=== PATIENT | male | born 1955 | race Two or more races ===

== ENCOUNTER 2017-07-25 23:45 | Inpatient (IN) | payer OTHER ==
[~2017-07-25] VITALS: Ht 172.7 cm; Wt 91.0 kg
[2017-07-26 00:44] LABS: Eosinophils # (auto) 0 uL; Hemoglobin 13.5 g/dL (13.5-17.5)
[2017-07-26 00:46] LABS: Basophils # (auto) 0.2 uL; Basophils % (auto) 0.5 % (0.0-2.0); Hematocrit 40.8 % (41.0-53.0); Lymphocytes # (auto) 1.7 uL; Lymphocytes % (auto) 4.6 % (10.0-50.0); Mean Corpuscular Hemoglobin 29.4 pg (28.0-32.0); Mean Corpuscular Hgb Conc. 33.2 g/dL (32.0-36.0); Mean Corpuscular Volume 88.7 fL (80.0-100.0); Monocytes # (auto) 2.4 uL; Monocytes % (auto) 6.6 % (0.0-12.0); Neutrophils # (auto) 31.4 uL; Neutrophils % (auto) 88.3 % (37.0-80.0); Platelet Count (auto) 599 10^3/uL (140-450); Red Cell Distribution Width 13.2 % (11.8-14.3)
[2017-07-26 00:49] LABS: White Blood Cell 35.6 10^3/uL (4.4-10.8)
[2017-07-26 00:51] LABS: INR 1.04 (0.9-1.15); Partial Thromboplastin Time 34.6 sec (22.64-33.71); Prothrombin Time 11.3 sec (9.37-12.3)
[2017-07-26 01:11] LABS: Alanine Aminotransferase 13 U/L (16-61); Alkaline Phosphatase 130 U/L (45-117); Anion Gap 21 (5-15); Aspartate Aminotransferase 9 U/L (15-37); BUN/Creatinine Ratio 24.5; Blood Urea Nitrogen 38 mg/dL (7-18); Calcium 9.7 mg/dL (8.5-10.1); Carbon Dioxide 14 mmol/L (21-32); Chloride 88 mmol/L (98-107); GFR African American 59 mL/min; GFR Non-African American 49 mL/min; Sodium 123 mmol/L (136-145)
[2017-07-26 01:12] LABS: Albumin 2.8 g/dL (3.4-5.0); Bilirubin, Total 0.6 mg/dL (0.2-1.0); Total Protein 9.5 g/dL (6.4-8.2)
[2017-07-26 01:28] LABS: Glucose 632 mg/dL (74-106)
[2017-07-26] MEDS ORDERED: SODIUM CHLORIDE 0.9% 1,000 ML IV ONE (01:45)
[2017-07-26] MEDS ORDERED: SODIUM CHLORIDE 0.9% 2,000 ML IV ONE (01:45)
[2017-07-26] MEDS ORDERED: InsuLIN REG 1unit/0.01ml Soln (100units/ml) IV ONE (01:45)
[2017-07-26] MEDS ORDERED: InsuLIN R (HUMAN) 100 UNITS in SODIUM CHL 0.9% 99 ML IV SCH (02:26)
[2017-07-26] MEDS ORDERED: DEXTROSE (50%) 50ML SYRG IV PRN ×2 (02:30→15:45)
[2017-07-26] MEDS ORDERED: MORPHINE SULFATE 4 MG/ML SYR/VIAL IV ONE (03:00)
[2017-07-26] MEDS ORDERED: ONDANSETRON HCL 4 MG/2 ML VIAL IV ONE (03:00)
[2017-07-26] MEDS: SODIUM CHLORIDE 0.9% 1,000 ML IV SCH ×5 (03:15→15:09)
[2017-07-26] MEDS: ACCU-CHEK COMFORT CURVE STRIP VI SCH ×12 (03:16→20:00)
[2017-07-26 04:02] LABS: BUN/Creatinine Ratio 25.9; Potassium 4.5 mmol/L (3.5-5.1)
[2017-07-26 04:05] LABS: Magnesium 2.6 mg/dL (1.6-2.6)
[2017-07-26] MEDS ORDERED: SODIUM CHLORIDE 0.9% 1,000 ML IV SCH (06:26)
[2017-07-26 07:51] LABS: Urine Bacteria NONE SEEN /hpf (None Seen); Urine Blood TRACE /uL (Negative); Urine Specific Gravity 1.027 (1.001-1.035)
[2017-07-26 07:53] LABS: Urine WBC None Seen /hpf (0 - 3)
[2017-07-26] MEDS ORDERED: PIPERACILLIN-TAZOB 3.375GM 50 ML IV ONE (08:30)
[2017-07-26 09:35] LABS: Albumin 2.2 g/dL (3.4-5.0); BUN/Creatinine Ratio 24.3; Bilirubin, Total 0.3 mg/dL (0.2-1.0); Calcium 8.8 mg/dL (8.5-10.1); Potassium 4.4 mmol/L (3.5-5.1); Total Protein 7.7 g/dL (6.4-8.2)
[2017-07-26] MEDS: BENAZEPRIL HCL 10 MG TAB PO SCH ×2 (10:00→10:28)
[2017-07-26] MEDS: ENOXAPARIN SOD 30 MG/0.3 ML SYRINGE SC SCH (10:28)
[2017-07-26] MEDS: MORPHINE SULFATE 4 MG/ML SYR/VIAL IV PRN ×3 (10:48→21:48)
[2017-07-26] MEDS: ONDANSETRON HCL 4 MG/2 ML VIAL IV PRN ×3 (10:48→21:59)
[2017-07-26 11:35] LABS: Mean Corpuscular Hemoglobin 29.2 pg (28.0-32.0)
[2017-07-26 11:36] LABS: Hematocrit 35.4 % (41.0-53.0); Hemoglobin 11.9 g/dL (13.5-17.5); Mean Corpuscular Hgb Conc. 33.5 g/dL (32.0-36.0); Platelet Count (auto) 475 10^3/uL (140-450); Red Blood Cells 4.07 10^6/uL (4.5-5.90); White Blood Cell 29.1 10^3/uL (4.4-10.8)
[2017-07-26 12:04] LABS: Band Neutrophils % (manual) 0; Basophils % (manual) 0 (0.0-2.0); Eosinophils % (manual) 0 (0-7)
[2017-07-26 12:05] LABS: Blast Cells 0; Metamyelocytes % 0; Myelocytes % 0; Promyelocytes % 0; Reactive Lymphocytes 0
[2017-07-26] MEDS: PIPERACILLIN-TAZOB 3.375GM 50 ML IV SCH ×2 (12:08→18:17)
[2017-07-26] MEDS: METOPROLOL TARTRATE 25 MG TAB PO SCH ×2 (13:45→21:35)
[2017-07-26 15:07] LABS: Lymphocytes % (manual) 9 (10.0-50.0); Monocytes % (manual) 12 (0-12)
[2017-07-26] MEDS ORDERED: INSULIN LANTUS (GLARGINE) 1 /0.01ml (100units/ml) SC ONE (15:45)
[2017-07-26] MEDS: guaiFENesin-DM 100/10mg/5ml SYR PO PRN ×2 (16:18→21:48)
[2017-07-26] MEDS: InsuLIN REG 1unit/0.01ml Soln (100units/ml) SC SCH ×2 (17:00→21:36)
[2017-07-26 17:09] VITALS: BP 155/75
[2017-07-26] MEDS: ATORVASTATIN 20 MG TAB PO SCH (21:26)
[2017-07-26] MEDS: HYDROcodone-ACET 5/325MG TAB PO PRN (21:27)
[2017-07-26 21:54] VITALS: BP 160/73
[2017-07-26] MEDS: IPRATROPIUM BROM 0.5 MG/2.5ML INH SOL NEB PRN (22:45)
[2017-07-26] MEDS: ALBUTEROL SULF 2.5 MG/0.5ML(0.5%) NEB SOLN NEB PRN (22:45)
[2017-07-27] VITALS (7 sets, daily range): BP systolic 121–157; BP diastolic 59–86
[2017-07-27] MEDS: PIPERACILLIN-TAZOB 3.375GM 50 ML IV SCH ×5 (00:57→23:40)
[2017-07-27] MEDS: SODIUM CHLORIDE 0.9% 1,000 ML IV SCH ×4 (00:57→21:48)
[2017-07-27] MEDS: InsuLIN REG 1unit/0.01ml Soln (100units/ml) SC SCH ×7 (00:58→23:57)
[2017-07-27] MEDS: ACCU-CHEK COMFORT CURVE STRIP VI SCH ×7 (04:00→23:57)
[2017-07-27] MEDS: guaiFENesin-DM 100/10mg/5ml SYR PO PRN ×2 (04:35→11:55)
[2017-07-27] MEDS: MORPHINE SULFATE 4 MG/ML SYR/VIAL IV PRN (04:49)
[2017-07-27] MEDS: HYDROcodone-ACET 5/325MG TAB PO PRN ×2 (05:00→11:56)
[2017-07-27 06:22] LABS: Basophils # (auto) 0 uL; Basophils % (auto) 0.1 % (0.0-2.0); Eosinophils # (auto) 0 uL; Eosinophils % (auto) 0.1 % (0.0-7.0); Hematocrit 33.2 % (41.0-53.0); Hemoglobin 11.2 g/dL (13.5-17.5); Lymphocytes # (auto) 1.1 uL; Lymphocytes % (auto) 4.6 % (10.0-50.0); Mean Corpuscular Hemoglobin 29.5 pg (28.0-32.0); Mean Corpuscular Hgb Conc. 33.7 g/dL (32.0-36.0); Mean Corpuscular Volume 87.6 fL (80.0-100.0); Monocytes # (auto) 1.7 uL; Monocytes % (auto) 7.4 % (0.0-12.0); Neutrophils # (auto) 20.8 uL; Neutrophils % (auto) 87.8 % (37.0-80.0); Platelet Count (auto) 404 10^3/uL (140-450); Red Blood Cells 3.79 10^6/uL (4.5-5.90); Red Cell Distribution Width 13.1 % (11.8-14.3); White Blood Cell 23.6 10^3/uL (4.4-10.8)
[2017-07-27 06:44] LABS: BUN/Creatinine Ratio 17.2; Calcium 8.7 mg/dL (8.5-10.1); Magnesium 2.2 mg/dL (1.6-2.6); Potassium 3.6 mmol/L (3.5-5.1)
[2017-07-27] MEDS: ENOXAPARIN SOD 30 MG/0.3 ML SYRINGE SC SCH (10:20)
[2017-07-27] MEDS: BENAZEPRIL HCL 10 MG TAB PO SCH (10:20)
[2017-07-27] MEDS: METOPROLOL TARTRATE 25 MG TAB PO SCH ×2 (10:20→21:47)
[2017-07-27] MEDS ORDERED: INSULIN LANTUS (GLARGINE) 1 /0.01ml (100units/ml) SC ONE (11:15)
[2017-07-27] MEDS ORDERED: METOPROLOL TARTRATE 25 MG TAB PO ONE (11:15)
[2017-07-27] MEDS ORDERED: SODIUM CHLORIDE 0.9% 1,000 ML IV ONE (11:15)
[2017-07-27] MEDS: ACETAMINOPHEN 500 MG TAB PO PRN (20:17)
[2017-07-27] MEDS: ATORVASTATIN 20 MG TAB PO SCH (21:47)
[2017-07-28] MEDS: InsuLIN REG 1unit/0.01ml Soln (100units/ml) SC SCH ×4 (03:59→16:00)
[2017-07-28] MEDS: ACCU-CHEK COMFORT CURVE STRIP VI SCH ×4 (03:59→16:00)
[2017-07-28] MEDS: MORPHINE SULFATE 4 MG/ML SYR/VIAL IV PRN (05:00)
[2017-07-28 05:01] VITALS: BP 163/94
[2017-07-28] MEDS: PIPERACILLIN-TAZOB 3.375GM 50 ML IV SCH ×3 (05:56→18:00)
[2017-07-28 08:00] VITALS: BP 169/88
[2017-07-28 08:45] LABS: Basophils # (auto) 0 uL; Basophils % (auto) 0.1 % (0.0-2.0); Eosinophils # (auto) 0.1 uL; Eosinophils % (auto) 0.5 % (0.0-7.0); Hematocrit 32.8 % (41.0-53.0); Hemoglobin 10.8 g/dL (13.5-17.5); Lymphocytes # (auto) 1.8 uL; Lymphocytes % (auto) 8.8 % (10.0-50.0); Mean Corpuscular Hemoglobin 28.7 pg (28.0-32.0); Mean Corpuscular Hgb Conc. 32.8 g/dL (32.0-36.0); Mean Corpuscular Volume 87.5 fL (80.0-100.0); Monocytes # (auto) 1.5 uL; Monocytes % (auto) 7.2 % (0.0-12.0); Neutrophils % (auto) 83.4 % (37.0-80.0); Nucleated Red Blood Cells % 0.1 %; Platelet Count (auto) 419 10^3/uL (140-450); Red Blood Cells 3.75 10^6/uL (4.5-5.90); Red Cell Distribution Width 13.2 % (11.8-14.3); White Blood Cell 20.4 10^3/uL (4.4-10.8)
[2017-07-28 09:00] VITALS: BP 169/88
[2017-07-28 09:04] LABS: BUN/Creatinine Ratio 15.7; Calcium 8.7 mg/dL (8.5-10.1); Magnesium 2.1 mg/dL (1.6-2.6); Potassium 3.5 mmol/L (3.5-5.1)
[2017-07-28] MEDS ORDERED: INSULIN LANTUS (GLARGINE) 1 /0.01ml (100units/ml) SC SCH ×2 (10:00)
[2017-07-28] MEDS: SODIUM CHLORIDE 0.9% 1,000 ML IV SCH ×2 (10:30→17:30)
[2017-07-28] MEDS: BENAZEPRIL HCL 10 MG TAB PO SCH (10:34)
[2017-07-28] MEDS: METOPROLOL TARTRATE 25 MG TAB PO SCH (10:34)
[2017-07-28] MEDS: ENOXAPARIN SOD 30 MG/0.3 ML SYRINGE SC SCH (10:34)
[2017-07-28] MEDS: HYDROcodone-ACET 5/325MG TAB PO PRN (10:44)
[2017-07-28] MEDS: ACETAMINOPHEN 500 MG TAB PO PRN (12:01)
[2017-07-28] MEDS: guaiFENesin-DM 100/10mg/5ml SYR PO PRN (12:19)
[2017-07-28] MEDS: IPRATROPIUM BROM 0.5 MG/2.5ML INH SOL NEB PRN ×2 (12:25→19:34)
[2017-07-28] MEDS: ALBUTEROL SULF 2.5 MG/0.5ML(0.5%) NEB SOLN NEB PRN ×2 (12:25→19:34)
[2017-07-28 13:00] VITALS: BP 142/74
[2017-07-28] MEDS ORDERED: INSLANTI SC (13:05)
[2017-07-28] MEDS ORDERED: INSREGI SC (13:05)
[2017-07-28] MEDS ORDERED: ALBUAER3 IN (13:05)
[2017-07-28] MEDS ORDERED: ATOR20TA50 PO (13:05)
[2017-07-28] MEDS ORDERED: LEVO500T21 PO (13:05)
[2017-07-28] MEDS ORDERED: BEN10T PO (13:05)
[2017-07-28] MEDS ORDERED: MET25T PO (13:05)
[2017-07-28] MEDS ORDERED: IPRIH IN (13:05)
[2017-07-28] MEDS ORDERED: DEXT1SYP6 PO (13:05)
[2017-07-28] MEDS ORDERED: INSU-829 XX (13:08)
[2017-07-28 16:33] VITALS: BP 146/80
[2017-07-28 17:48] VITALS: BP 142/74
== END 2017-07-28 20:10 | disposition home health service (06) | DRG 871 ==
LOC: ER 23:51 → TELE 23:52 → TELE-EAST 07-26 19:54
PROVIDERS: ADMIT Nurse Practitioner Family; ATTEND Internal Medicine
DX: A41.9 Sepsis, unspecified organism (principal); E11.10 Type 2 diabetes mellitus with ketoacidosis without coma; N17.9 Acute kidney failure, unspecified; J18.9 Pneumonia, unspecified organism; E86.0 Dehydration; E78.5 Hyperlipidemia, unspecified; I10 Essential (primary) hypertension; Z79.4 Long term (current) use of insulin
CPT/HCPCS: 36415; 36600; 71046; 71250; 80048; 80053; 81001; 82010; 82805; 82962; 83036; 83605; 83735; 83930; 84100; 84484; 85007; 85025; 85027; 85610; 85730; 87040; 87804; 94640; 96361; 96374; J1815; J2405; J2543; J7060

== ENCOUNTER 2024-03-21 12:32 | Emergency (ER) | payer OTHER ==
[~2024-03-21] VITALS: Ht 172.7 cm; Wt 92.2 kg
[~2024-03-21 12:32] MED LIST: ALBUAER3 IN; ATOR20TA50 PO; BENA10TA16 PO; DEXT1SYP6 PO; INSLANTI SC; INSREGI SC; INSU-829 XX; IPRIH IN; LEVO500T31 PO; MET25T PO
[2024-03-21 12:59] LABS: Urine Bacteria None Seen /hpf (None Seen); Urine WBC None Seen /hpf (0 - 3)
--- NOTE | 2024-03-21 13:02 | ED.PDOC ---
General HPI Comments 69 y.o male presents to the ED for a chief complaint of left sided flank pain. Patient reports ongoing pain for the past 4 years, worsened last night with upper torso rotation/ movement. Patient has been seen in the past for this pain, had an MRI and x rays done but states nothing was found. Patient does mention lifting heavy objects " a while back" associated with continuos twisting and stretching. No urinary symptoms, diarrhea, nausea, vomiting, fever, chills. Vital signs BP: 182/92 HR: 96 Temp: 98.6 F SPO2: 96% RA RR: 18 Patient denies any allergies Past medical history: DM and HTN Past surgical history: right forearm and left leg/knee and hip HPI: Poor Historian. Past Medcial History: Past Surgical History: REVIEW OF SYSTEMS: CONSTITUTIONAL: Denies acute: fever, diaphoresis, chills, generalized weakness. HEAD: Denies acute: headache, photophobia Eyes: Denies acute: Double vision, vision loss, eye pain, eye discharge. EARS: Denies acute: tinnitus, hearing loss, ear discharge, ear pain, THROAT: Denies acute: sore throat, swelling, difficulty swallowing , pain with swallowing, change in voice. NECK: Denies acute: neck pain, neck swelling, stiff neck. HEART: Denies acute : chest pain, palpitations, LUNGS: Denies acute: SOB, wheezing, cough, hemoptysis ABDOMEN: Denies acute: abdominal pain, Nausea, Vomiting, diarrhea, melena , hematemesis, hematochezia SKIN: Denies acute: rash, redness, lesions, itchiness. EXTREMITIES: Denies acute: calf pain, numbness, tingling, weakness, denies pain in extremity. Neuro: Denies acute: focal neurological deficit, motor or sensory focal neurological deficit, tremors, seizure like activity, confusion, dizziness, change in mental status, loss of bowel or bladder function, cauda equina like symptoms. : Denies acute: dysuria, hematuria, increase in urinary frequency. PSYCH: Denies acute: hallucination, suicidal ideation, homicidal ideation. PHYSICAL EXAM: General: no acute distress, awake and alert. Head: normocephalic, atraumatic. Neck: supple, trachea is midline, no swelling. Throat: Normal phonation. Eyes:, no erythema, no purulent discharge, no proptosis, no icterus. Heart: regular rate, regular rhythm, no significant murmur appreciated. Lungs: no apparent respiratory distress, Able to speak in full sentences. No wheezing, no rhonchi, no crackles. No stridors Clear to auscultation bilaterally. Abdomen: non tender to palpation, non distended, soft, no guarding, no rebound, + bowel sounds. Neuro: Awake, Alert, oriented to name, self, situation, follows commands GCS=15. Speech is normal. Skin: no petechia, no purpura, no cyanosis, non-pale, not jaundice. Lower extremities: --no - Pitting edema no deformity, no focal swelling, no calf TTP. Makes eye contact. moves all four extremities. Face: no apparent facial droop. Left CVA tenderness to percussion. Ambulating in the ED independently. Chief Complaint: Flank Pain Time Seen by MD: 12:40 Reviewed notes: Nurses Notes, Medications, Allergies Allergies: Coded Allergies: NO KNOWN ALLERGIES (Unverified , 07/26/17) Home Meds Active Scripts Insulin Syringe/Needle U-100 (B-D Insulin Syringe Ultra 30G X 1/2" 0.3 ml) 1 Mis Mis, MIS XX, #120 Prov:SATHISH HUI MD 07/28/17 Dextromethorphan-Guaifenesin (Guaifenesin/Dextromethorp 10-100 mg/5Ml) 1 Syp Syp, 10 ML PO Q4HPRN PRN, #1 BOTTLE Prov:SATHISH HUI MD 07/28/17 Levofloxacin (Levaquin) 500 Mg Tab, 500 MG PO DAILY, #7 TAB Prov:SATHISH HUI MD 07/28/17 Albuterol Sulfate (VENTOLIN MDI) 90 Mcg Ih, 2 PUFF IN Q6HPRN PRN, #1 INHALER Prov:SATHISH HUI MD 07/28/17 Ipratropium [place] Hfa (Atrovent Hfa) 17 Mcg Aer, 17 MCG IN Q6HPRN PRN, #1 INHALER Prov:SATHISH HUI MD 07/28/17 Metoprolol Tartrate (Lopressor) 25 Mg Tb, 25 MG PO BID, #60 TAB Prov:SATHISH HUI MD 07/28/17 Insulin Regular (Human) (Novolin R) 100 Unit/Ml Inj, 0 UNITS SC ACHS, #120 DOSE ADMINISTER DIRECTED PER SLIDING SCALE UP TO 40 UNITS PER DAY. Prov:SATHISH HUI MD 07/28/17 Insulin Glargine (Lantus) 100 Unit/Ml Inj, 55 UNITS SC DAILY@1000, #30 DOSE Prov:SATHISH HUI MD 07/28/17 Benazepril Hcl (LOTENSIN TABLET) 10 Mg Tb, 20 MG PO DAILY, #30 TAB Prov:SATHISH HUI MD 07/28/17 Atorvastatin Calcium (ATORVASTATIN CALCIUM) 20 Mg Tab, 10 MG PO HS, #30 TAB Prov:SATHISH HUI MD 07/28/17 Information Source: Patient Mode of Arrival: Ambulatory Past Medical History PAST MEDICAL HISTORY: DM, HTN Surgical History: Cholecystectomy, Tonsillectomy Surgical History (Other): right forearm and left leg/knee and hip Family History Family History: Unknown Social History Smoker: Non-Smoker Alcohol: Denies ETOH Use Drugs: Denies Drug Use Lives In: Home Was a procedure done? Was a procedure done?: No Differential Diagnosis Kidney stone (Female): N/A Kidney stone (Male): Pancreatitis, Pyelonephritis, Strain, Other (Flank Pain;DDX include Nephrolethiasis, obstructive uropathy, kidney cancer, renal infarct, intraabdominal neoplasm, lower lobe pneumonia, retroperitoneal hemorrhage, pancreatitis, aneurysm, dissection, musculoskeletal, rib contusion/trauma, hematoma, PYLONEPHRITIS, muscle strain, spinal disease.) Urinary Problem (Male): Other (As far as low back pain,) Urinary Problem (Female): Other (DDX included but not limited to Cauda Equina syndrome, lumbar radiculopathy, arthritis, disk herniation, sciatica, muscle strain, epidural abscess, transverse myelitis. Cord compression, spinal foraminal stenosis, spinal fractures, spondylosis, central canal stenosis, trauma, muscle sprain/strain, aneurysm/dissection, kidney stones, shingles, arthritis, [place], neoplasm.) X-Ray, Labs, Meds, VS Vital Signs Date Time Temp Pulse Resp B/P (MAP) Pulse Ox O2 Delivery O2 Flow Rate FiO2 03/21/24 18:07 85 18 155/94 (114) 95 03/21/24 14:32 83 20 98 Room Air* 0 21 03/21/24 14:32 83 18 135/70 (91) 99 03/21/24 12:54 98.6 96 18 186/92 (123) 96 Lab Test 03/21/24 18:04 03/21/24 14:31 03/21/24 13:00 03/21/24 12:57 Range/Units POC Glucose 151 H 560 *H 70-106 mg/dl White Blood Count 13.2 H 4.4-10.8 10^3/uL Red Blood Count 5.41 4.5-5.90 10^6/uL Hemoglobin 16.4 13.5-17.5 g/dL Hematocrit 47.3 41.0-53.0 % Mean Corpuscular Volume 87.5 80.0-100.0 fL Mean Corpuscular Hemoglobin 30.4 28.0-32.0 pg Mean Corpuscular Hemoglobin Concent 34.7 32.0-36.0 g/dL Red Cell Distribution Width 13.1 11.8-14.3 % Platelet Count 265 140-450 10^3/uL Mean Platelet Volume 8.9 6.9-10.8 fL Neutrophils (%) (Auto) 77.3 37.0-80.0 % Lymphocytes (%) (Auto) 16.2 10.0-50.0 % Monocytes (%) (Auto) 4.6 0.0-12.0 % Eosinophils (%) (Auto) 1.6 0.0-7.0 % Basophils (%) (Auto) 0.3 0.0-2.0 % Neutrophils # (Auto) 10.2 H 1.6-8.6 10 ^3/uL Lymphocytes # (Auto) 2.1 0.4-5.4 10 ^3/uL Monocytes # (Auto) 0.6 0-1.3 10 ^3/uL Eosinophils # (Auto) 0.2 0-0.8 10 ^3/uL Basophils # (Auto) 0 0-0.2 10 ^3/uL Nucleated Red Blood Cells 0.1 % Sodium Level 132 L 136-145 mmol/L Potassium Level 5.3 H 3.5-5.1 mmol/L Chloride Level 101 98-107 mmol/L Carbon Dioxide Level 27 20-31 mmol/L Anion Gap 4 L 5-15 Blood Urea Nitrogen 30 H 9-23 mg/dL Creatinine 1.51 H 0.700-1.30 mg/dL Glomerular Filtration Rate Calc 50 >90 mL/min BUN/Creatinine Ratio 19.9 10.0-20.0 Serum Glucose 528 *H 74-106 mg/dL Lactic Acid Level 1.6 0.4-2.0 mmol/L Calcium Level 9.9 8.7-10.4 mg/dL Total Bilirubin 0.3 0.2-1.0 mg/dL Aspartate Amino Transferase (AST) 15 13-40 U/L Alanine Aminotransferase (ALT) 17 7-40 U/L Alkaline Phosphatase 159 H 46-116 U/L Troponin I High Sensitivity < 3 L </=54 ng/L Total Protein 7.8 5.7-8.2 g/dL Albumin 4.8 3.2-4.8 g/dL Lipase 82 H 12-53 U/L Urine Color Light-yellow Yellow Urine Clarity Clear Clear Urine pH 5.0 5.0-9.0 Urine Specific [place] 1.031 1.001-1.035 Urine Protein Negative Negative Urine Ketones Negative Negative Urine Blood Negative Negative /uL Urine Nitrite Negative Negative Urine Bilirubin Negative Negative Urine Urobilinogen Normal Negative mg/dL Urine Leukocyte Esterase Negative Negative /uL Urine RBC 1 0 - 3 /hpf Urine WBC None seen 0 - 3 /hpf Urine Squamous Epithelial Cells None seen <5 /hpf Urine Bacteria None seen None Seen /hpf Urine Glucose 4+ H Normal mg/dL Current Medications Medications (Trade) Dose Ordered Sig/[place] Route Start Time Stop Time Status Last Admin Insulin Human Regular (InsuLIN R) 5 units ONCE ONCE IV 03/21/24 14:15 03/21/24 14:16 DC 03/21/24 14:39 Sodium Chloride 1,000 ml @ 1,000 mls/hr Q1H ONCE IV 03/21/24 14:15 03/21/24 15:14 DC 03/21/24 14:[address] [address] Ph: [phone] DIAGNOSTIC IMAGING Diagnostic Imaging Report : [id number] Signed PATIENT: ESTRELLITA AUGUSTINACCT: [id number] UNIT: [id number] : 1955 LOC: ER ROOM / BED: / AGE / SEX: 69 / M ADM STATUS: REG ER SERVICE 1247 ORDERING PHYSICIAN: MARGARITA WILSON DO PROCEDURE(s): ABPLIV - CT AB PEL WITH IV CON ONLY REASON: L flank pain ORDER NUMBER(s): [id number], ACCESSION NUMBER(s): [id number] Exam: CT CT AB PEL WITH IV CON ONLY History: L flank pain COMPARISON: None Technique: Multidetector spiral CT of the abdomen and pelvis was performed from lung bases to pubic symphysis. Intravenous contrast was administered during this examination. Portal venous imaging was obtained. Axial, coronal and sagittal multiplanar reformats were performed by the technologist on a separate workstation. Radiation Dose : Abdomen/Pelvis: CTDIvol 14 mGy, DLP 874.05 mGy*cm. CONTRAST: Type of contrast: Omni 300 Contrast injected: 100 mL Findings: Lung Bases: No acute or significant lung base finding. Normal heart size. No pleural or pericardial effusion. Liver: The liver is normal in size. No focal lesions. Normal hepatic vascular enhancement. Gallbladder and biliary Tree: Gallbladder is surgically absent. Spleen: Unremarkable Pancreas: The pancreas is normal in appearance without focal lesions or abnormal enhancement. Adrenal Glands: Unremarkable Kidneys: There is a high density right renal lesion measuring up to 19 mm. There are left renal cysts. No hydronephrosis. Bladder: Unremarkable Bowel: The stomach is grossly normal in appearance. Small bowel and colon are normal in caliber and distribution. The appendix is not visualized; however, no secondary findings of acute appendicitis identified. Ascites: Absent Lymphadenopathy: No mesenteric, retroperitoneal or periportal lymphadenopathy. Abdominal wall and Mesentery: Unremarkable. Vasculature: The visualized abdominal aorta is normal in size and caliber. Abdominal and pelvic vessels demonstrate normal enhancement. Pelvic Organs: Unremarkable Musculoskeletal: No aggressive focal bony lesions, acute fractures or dislocation. IMPRESSION: 1. Limited by motion. No acute abdominal or pelvic finding. High density right renal lesion could represent a hyperdense cyst or enhancing mass. This could be further evaluated with multiphase contrast-enhanced CT or MRI of the abdomen. Radiation optimization: All CT scans at this facility use at least one of these dose optimization techniques: Automated exposure control mA and/or kV adjustment per patient size (includes targeted exams where dose is matched to clinical indication) or iterative reconstruction. HS:Y ATED BY: TED WATSON MD DICTATED DATE/TIME: 03/21/241708 SIGNED BY: TED WATSON MD SIGNED DATE/TIME: 03/21/241708 CC: Time of 1ST Reevaluation: 12:57 Reevaluation 1ST: Unchanged Patient Education/Counseling: Diagnosis, Treatment Family Education/Counseling: No Family Present Comments Patient presented with the above HPI.---low back pain/flank pain---workup was initiated. patient was found with the above mentioned diagnosis. Patient was given: [place], insulin, fluids Patient ED course and VS have been stabilized. Patient has been reassessed in the ED and remained in a stable condition. Pertinent incidental findings were discussed with the patient and/or family. Patient/family voices understanding and is agreeable with plan. Patient has been observed in the ED adequate length of time to insure improvement/stability. patient was discharged home in a stable condition. All the reports of any imaging studies that were ordered by myself were reviewed by myself. Departure 1 Departure Time of Disposition: 19:35 Impression: Primary Impression: Lumbosacral pain Additional Impressions: Flank pain Abnormal finding on CT scan Disposition: HOME / SELF CARE / HOMELESS Condition: Stable Additional Instructions: Additional discharge instructions: You MUST follow-up with your primary care/family doctor in 1 to 2 days. If you are unable to see your primary care/family doctor, please return to our emergency room for re-assessment and re-evaluation in 1 to 2 days. Return to the emergency room here in our facility or to the nearest ER [facility] if your symptoms change or worsen. CONSULTATIONS: you MUST Follow-up for consultation as soon as possible with: -urology in one two days. Please call for appointment You MUST call the consultants office yourself to make an appointment. You may need to arrange that through your insurance and/or your primary/family doctor. If you are unable to see the web development consultant in 1 to 2 days, you must return to our emergency room (or any other ER of your choice) for re-assessment and re- evaluation. Adequate fluid hydration. Use [id number] Tylenol for pain control as needed. Your sugar was elevated today. Please monitor your blood sugar at home at least 5 times a day. Below is a copy of your radiological report for follow up: You must follow up to rule out any cancer or any other causes of your pain. [place] [address] Ph: [phone] DIAGNOSTIC IMAGING Diagnostic Imaging Report : [id number] Signed PATIENT: ESTRELLITA AUGUSTIN ACCT: [id number] UNIT: [id number] : 1955 LOC: ER ROOM / BED: / AGE / SEX: 69 / M ADM STATUS: REG ER SERVICE 1247 ORDERING PHYSICIAN: MARGARITA WILSON DO PROCEDURE(s): ABPLIV - CT AB PEL WITH IV CON ONLY REASON: L flank pain ORDER NUMBER(s): [id number], ACCESSION NUMBER(s): [id number] Exam: CT CT AB PEL WITH IV CON ONLY History: L flank pain COMPARISON: None Technique: Multidetector spiral CT of the abdomen and pelvis was performed from lung bases to pubic symphysis. Intravenous contrast was administered during this examination. Portal venous imaging was obtained. Axial, coronal and sagittal multiplanar reformats were performed by the technologist on a separate workstation. Radiation Dose : Abdomen/Pelvis: CTDIvol 14 mGy, DLP 874.05 mGy*cm. CONTRAST: Type of contrast: Omni 300 Contrast injected: 100 mL Findings: Lung Bases: No acute or significant lung base finding. Normal heart size. No pleural or pericardial effusion. Liver: The liver is normal in size. No focal lesions. Normal hepatic vascular enhancement. Gallbladder and biliary Tree: Gallbladder is surgically absent. Spleen: Unremarkable Pancreas: The pancreas is normal in appearance without focal lesions or abnormal enhancement. Adrenal Glands: Unremarkable Kidneys: There is a high density right renal lesion measuring up to 19 mm. There are left renal cysts. No hydronephrosis. Bladder: Unremarkable Bowel: The stomach is grossly normal in appearance. Small bowel and colon are normal in caliber and distribution. The appendix is not visualized; however, no secondary findings of acute appendicitis identified. Ascites: Absent Lymphadenopathy: No mesenteric, retroperitoneal or periportal lymphadenopathy. Abdominal wall and Mesentery: Unremarkable. Vasculature: The visualized abdominal aorta is normal in size and caliber. Abdominal and pelvic vessels demonstrate normal enhancement. Pelvic Organs: Unremarkable Musculoskeletal: No aggressive focal bony lesions, acute fractures or dislocation. IMPRESSION: 1. Limited by motion. No acute abdominal or pelvic finding. High density right renal lesion could represent a hyperdense cyst or enhancing mass. This could be further evaluated with multiphase contrast-enhanced CT or MRI of the abdomen. Radiation optimization: All CT scans at this facility use at least one of these dose optimization techniques: Automated exposure control mA and/or kV adjustment per patient size (includes targeted exams where dose is matched to clinical indication) or iterative reconstruction. HS:Y ATED BY: TED WATSON MD DICTATED DATE/TIME: 03/21/241708 SIGNED BY: TED WATSON MD SIGNED DATE/TIME: 03/21/241708 CC: Discharged With: Self Critical Care Note Critical Care Time?: No I personally scribed for MARGARITA WILSON J DO ([email or web address]) on 03/21/24 at 13:02. Electronically submitted by Melly Avalos ([facility]). I personally scribed for KATIESHANIE J DO ([email or web address]) on 03/21/24 at 13:04. Electronically submitted by Melly Avalos ([facility]). I personally scribed for KATIESHANIE J DO ([email or web address]) on 03/21/24 at 18:10. Electronically submitted by Melly Avalos ([facility]). I personally scribed for SHANI WILSONE J DO ([email or web address]) on 03/21/24 at 19:35. Electronically submitted by Melly Avalos ([facility]). SHANI WILSONE J DO Mar 21, 2024 13:02
[2024-03-21 13:23] LABS: Urine Blood Negative /uL (Negative); Urine Clarity Clear (Clear); Urine Color Light-Yellow (Yellow); Urine Protein, UAD Negative (Negative); Urine Specific Gravity 1.031 (1.001-1.035); Urine Urobilinogen Normal (Negative)
[2024-03-21 13:44] LABS: Basophils # (auto) 0 10 ^3/uL (0-0.2); Basophils % (auto) 0.3 % (0.0-2.0); Eosinophils # (auto) 0.2 10 ^3/uL (0-0.8); Eosinophils % (auto) 1.6 % (0.0-7.0); Hematocrit 47.3 % (41.0-53.0); Hemoglobin 16.4 g/dL (13.5-17.5); Lymphocytes # (auto) 2.1 10 ^3/uL (0.4-5.4); Lymphocytes % (auto) 16.2 % (10.0-50.0); Mean Corpuscular Hemoglobin 30.4 pg (28.0-32.0); Mean Corpuscular Hgb Conc. 34.7 g/dL (32.0-36.0); Mean Corpuscular Volume 87.5 fL (80.0-100.0); Monocytes # (auto) 0.6 10 ^3/uL (0-1.3); Monocytes % (auto) 4.6 % (0.0-12.0); Neutrophils # (auto) 10.2 10 ^3/uL (1.6-8.6); Neutrophils % (auto) 77.3 % (37.0-80.0); Nucleated Red Blood Cells % 0.1 %; Platelet Count (auto) 265 10^3/uL (140-450); Red Blood Cells 5.41 10^6/uL (4.5-5.90); Red Cell Distribution Width 13.1 % (11.8-14.3); White Blood Cell 13.2 10^3/uL (4.4-10.8)
[2024-03-21 13:54] LABS: Alanine Aminotransferase 17 U/L (7-40); Alkaline Phosphatase 159 U/L (46-116); Anion Gap 4 (5-15); Aspartate Aminotransferase 15 U/L (13-40); BUN/Creatinine Ratio 19.9 (10.0-20.0); Blood Urea Nitrogen 30 mg/dL (9-23); Calcium 9.9 mg/dL (8.7-10.4); Carbon Dioxide 27 mmol/L (20-31); Chloride 101 mmol/L (98-107); Lipase 82 U/L (12-53); Potassium 5.3 mmol/L (3.5-5.1); Sodium 132 mmol/L (136-145)
[2024-03-21 13:55] LABS: Albumin 4.8 g/dL (3.2-4.8); Bilirubin, Total 0.3 mg/dL (0.2-1.0); Total Protein 7.8 g/dL (5.7-8.2)
[2024-03-21 14:01] LABS: Glucose 528 mg/dL (74-106)
[2024-03-21 14:32] VITALS: PULSE 83; RESP 20; O2SAT 98
[2024-03-21] MEDS: InsuLIN REG 1unit/0.01ml Soln (100units/ml) IV ONE (14:39)
[2024-03-21] MEDS: SODIUM CHLORIDE 0.9% 1,000 ML IV ONE (14:40)
[2024-03-21] MEDS: IOHEXOL 300 MG/ML 100ML BOTTLE IJ ONE ×2 (14:48→16:16)
--- NOTE | 2024-03-21 17:11 | DVH ---
Exam: CT CT AB PEL WITH IV CON ONLY History: L flank pain COMPARISON: None Technique: Multidetector spiral CT of the abdomen and pelvis was performed from lung bases to pubic symphysis. Intravenous contrast was administered during this examination. Portal venous imaging was obtained. Axial, coronal and sagittal multiplanar reformats were performed by the technologist on a separate workstation. Radiation Dose : Abdomen/Pelvis: CTDIvol 14 mGy, DLP 874.05 mGy*cm. CONTRAST: Type of contrast: Omni 300 Contrast injected: 100 mL Findings: Lung Bases: No acute or significant lung base finding. Normal heart size. No pleural or pericardial effusion. Liver: The liver is normal in size. No focal lesions. Normal hepatic vascular enhancement. Gallbladder and biliary Tree: Gallbladder is surgically absent. Spleen: Unremarkable Pancreas: The pancreas is normal in appearance without focal lesions or abnormal enhancement. Adrenal Glands: Unremarkable Kidneys: There is a high density right renal lesion measuring up to 19 mm. There are left renal cysts . No hydronephrosis. Bladder: Unremarkable Bowel: The stomach is grossly normal in appearance. Small bowel and colon are normal in caliber and d istribution. The appendix is not visualized; however, no secondary findings of acute appendicitis id entified. Ascites: Absent Lymphadenopathy: No mesenteric, retroperitoneal or periportal lymphadenopathy. Abdominal wall and Mesentery: Unremarkable. Vasculature: The visualized abdominal aorta is normal in size and caliber. Abdominal and pelvic vess els demonstrate normal enhancement. Pelvic Organs: Unremarkable Musculoskeletal: No aggressive focal bony lesions, acute fractures or dislocation. IMPRESSION: 1. Limited by motion. No acute abdominal or pelvic finding. High density right renal lesion could rep resent a hyperdense cyst or enhancing mass. This could be further evaluated with multiphase contrast- enhanced CT or MRI of the abdomen. Radiation optimization: All CT scans at this facility use at least one of these dose optimization ramon hniques: Automated exposure control mA and/or kV adjustment per patient size (includes targeted exams where dose is matched to clinical indication) or iterative reconstruction. HS:Y
[2024-03-21 18:07] VITALS: BP 155/94; PULSE 85; RESP 18; O2SAT 95
[2024-03-21] MEDS ORDERED: HYDROcodone-ACET 5/325MG TAB PO ONE (19:45)
== END 2024-03-21 19:47 | disposition home or self-care (01) ==
LOC: ER 12:40
DX: M54.50 Low back pain, unspecified (principal); R10.9 Unspecified abdominal pain; R93.89 Abnormal findings on diagnostic imaging of other specified body structures; E11.9 Type 2 diabetes mellitus without complications; I10 Essential (primary) hypertension; Z79.4 Long term (current) use of insulin; Z90.49 Acquired absence of other specified parts of digestive tract; Z90.89 Acquired absence of other organs
CPT/HCPCS: 36415; 74177; 80053; 81001; 82962; 83605; 83690; 84484; 85025; 96361; 96374; 99285; J1815; J7030; Q9967